=== PATIENT | female | born 1990 | race Caucasian/White ===

== ENCOUNTER 2023-07-20 14:15 | Emergency (ER) | payer OTHER ==
[~2023-07-20] VITALS: Ht 170.2 cm; Wt 74.8 kg
[2023-07-20 14:44] VITALS: TEMP 99.5
[2023-07-20 15:31] VITALS: BP 123/87; PULSE 99; RESP 18; O2SAT 98
== END 2023-07-21 01:23 | disposition left against medical advice (07) ==
LOC: ER 14:17
DX: R10.9 Unspecified abdominal pain (principal); Z53.21 Procedure and treatment not carried out due to patient leaving prior to being seen by health care provider
CPT/HCPCS: 99281; J7030